=== PATIENT | female | born 1995 | race Caucasian/White ===

== ENCOUNTER 2018-03-01 13:57 | Emergency (ER) | payer OTHER, SELFPAY ==
[2018-03-01 13:57] VITALS: BP 148/76; PULSE 111; RESP 16; TEMP 36.3; O2SAT 99; BMI 20.9
--- NOTE | 2018-03-01 14:11 | ED.VISSUMM ---
- ER Visit Summary Date of Service: 03/01/18 Chief Complaint: Abdominal pain History of Present Illness: The patient is a 22 F who presents with abdominal pain. Started this morning. It sharp in the right lower quadrant. It does not radiate. She had nausea when she tried to eat his morning. She denies any vomiting, diarrhea or constipation. She did have some dysuria yesterday. No hematuria. No history of abdominal surgeries in the past. She denies any fevers. Physical Examination: Vital signs reviewed. Heart rate 111. HEENT exam unremarkable. Heart is tachycardic and regular rhythm without murmurs. Lungs are clear to auscultation bilaterally. Abdomen soft with mild right lower quadrant tenderness to palpation. No guarding or rebound tenderness. Extremities reveal no edema. Neurologic exam normal. Test Results: Laboratory studies show normal white blood cell count. Glucose is 115. Urinalysis reveals 2+ leukocytes with positive nitrites. She does have 50-100 white blood cells Emergency Department Course and Treatment: Patient does have evidence of a acute bladder infection. She will be treated with Bactrim. She will follow-up with her PCP. She was given instructions to return the emergency department. Treatment Plan: [] Disposition: Discharge Impression: Acute cystitis This note was generated with [employer] dictation software. It may contain incorrect words, spelling, and punctuation that were not noted in review of the chart prior to signing ED Disposition - Plan for ED Patient: Chief Complaint: Abd Pain
[2018-03-01 14:50] LABS: Absolute Lymphocyte Count 2.46 X10^3/ul (0.83-4.51); Basophil# 0.06 X10^3/uL; Basophil% 0.6 % (0-1); Eosinophil# 0.09 X10^3/uL; Eosinophils% 0.9 % (0-5); Hematocrit 41.6 % (37-47); Hemoglobin 14.8 g/dl (12.0-15.0); Lymphocyte # 2.46 X10^3/ul (4.0); Lymphocyte % 24.5 % (19-41); Mean Corp Hgb Conc 35.6 g/gl (32-36); Mean Corpuscular Hgb 30.3 pg (27.0-32.0); Mean Corpuscular Volume 85.1 fL (81-99); Mean Platelet Vol. 9.3 fl (6.2-12.0); Monocyte# 0.39 X10^3/uL; Monocyte% 3.9 % (0-10); Neutrophil # 7.04 X10^3/uL (2.7-7.7); POSITIVE COUNT NO; POSITIVE DIFFERENTIAL NO; POSITIVE MORPHOLOGY NO; Platelet Count 304 K/mm3 (150-450); RBC Distribution Width CV 11.9 % (11.6-14.6); RBC Distribution Width SD 36.6 fl (35.1-43.9); Red Blood Count 4.89 M/mm3 (4.2-5.4); White Blood Count 10.1 K/mm3 (4.4-11.0)
[2018-03-01 15:00] LABS: Mucous, Urine 0 SEEN /hpf (<or=2+)
[2018-03-01 15:06] LABS: AST(SGOT) 13 U/L (15-37); Alanine Aminotransfer ALT/SGPT 17 U/L (13-56); Albumin, Serum 3.9 g/dL (3.2-5.0); Alkaline Phosphatase 65 U/L (45-117); Anion Gap 7 (5-15); BUN 10 mg/dL (7-18); Chloride 106 mmol/L (98-107); Creatinine, Serum 0.77 mg/dL (0.55-1.02); EST Glomerular Filtration Rate 99 mL/min (>60); Est Glom Filt Rate - Afr Amer 119 mL/min (>60); Estimated Creatinine Clearance 105.78 ml/min; Globulin 3.9 g/dL (2.2-4.2); Glucose 115 mg/dL (74-106); Potassium 3.5 mmol/L (3.5-5.1); Protein, Total 7.8 g/dL (6.4-8.2); Sodium Level 139 mmol/L (136-145)
[2018-03-01 15:07] LABS: Color, Urine Yellow (Yellow); Glucose, Dipstick Normal (Normal); Ketone-Dipstick Negative (Negative); Leukocyte Esterase-Dipstick 500 /ul (Negative); Nitrite-Dipstick Positive (Negative); Occult Blood-Urine 250 /ul (Negative); Protein-Dipstick 100 mg/dl (Negative); Urine Bilirubin Dipstick Negative (Negative); Urine Clarity Clear (Clear); Urine Urobilinogen Normal (Normal)
[2018-03-01 15:11] LABS: Bacteria 2+ /hpf (None Seen); Red Blood Cells-Urine 5-10 SEEN /hpf (0-5); Squamous Epithelial Cells - UA 0-5 SEEN /hpf (5-10)
[2018-03-01 15:12] LABS: White Blood Cells 50-100 SEEN /hpf (0-5)
--- NOTE | 2018-03-01 15:34 | ED.DEP ---
ED Disposition - Plan for ED Patient: Disposition: Home or Assisted Living Chief Complaint: Abd Pain Instructions: ED UTI Cystitis Female Prescriptions: Smz/Tmp Ds [Bactrim Ds] 1 tab PO BID #14 tab Referrals: Care Physician,No Primary [Primary Care Provider] -
[2018-03-01 15:35] LABS: Internal QC Validated? YES +Cl - CLEAR BKGD; Pregnancy, Urine Negative Negative
[2018-03-01] MEDS: Smz/Tmp Ds Tablet 1 TABLET PO (15:40)
[2018-03-01 15:41] VITALS: BP 109/77; PULSE 62; RESP 15; O2SAT 100
== END 2018-03-01 15:41 | disposition home or self-care (01) ==
PROVIDERS: Emergency Provider Emergency Medicine
DX: N30.00 Acute cystitis without hematuria (principal)
CPT/HCPCS: 80053; 81001; 81025; 85025; 99284; A4216